=== PATIENT | male | born 1985 ===

== ENCOUNTER 2024-03-16 11:27 | Emergency (ER) | payer OTHER | END 2024-03-16 13:36 | disposition home or self-care (01) | LOC: LL.ED 11:27 | DX: T60.3X1A Toxic effect of herbicides and fungicides, accidental (unintentional), initial encounter (principal); Y99.0 Civilian activity done for income or pay | CPT/HCPCS: 99283 ==

== ENCOUNTER 2025-08-26 08:24 | Emergency (ER) | payer BC ==
[2025-08-26] MEDS: Ondansetron 4 MG Tab.DIS PO ONE (08:57)
== END 2025-08-26 09:37 | disposition home or self-care (01) ==
LOC: LL.ED 08:24
DX: J40 Bronchitis, not specified as acute or chronic (principal)
CPT/HCPCS: 71046; 87428-QW; 99283; 99284; A9270-GY